=== PATIENT | male | born 1990 | race Caucasian/White ===

== ENCOUNTER 2022-02-10 21:45 | Emergency (ER) | payer OTHER ==
[~2022-02-10] VITALS: Ht 165.1 cm; Wt 68.0 kg
[2022-02-10 21:53] VITALS: BP 116/79
--- NOTE | 2022-02-10 21:56 | NUR ---
TRISHA SAM ALS TO ER BED 09
--- NOTE | 2022-02-10 22:05 | NUR ---
pt refused US, pt given education on resoning behind study being ordered. pt still refused study to be done. ERMD made aware. ERMD to see patient.
[2022-02-10 22:06] VITALS: BP 111/80
--- NOTE | 2022-02-10 22:06 | NUR ---
Verbal Discharge by ROMEL Harrison. Patient discharged with v/s stable. Patient verbalized understanding. Ambulatory with steady gait. All questions addressed prior to discharge. Advised to follow up with PMD.
== END 2022-02-10 22:06 | disposition home or self-care (01) ==
LOC: MED 21:45
DX: R07.89 Other chest pain (principal)
CPT/HCPCS: 93005; 99283